=== PATIENT | female | born 1990 | race Caucasian/White ===

== ENCOUNTER 2021-03-11 09:17 | Emergency (ER) | payer OTHER | END 2021-03-11 10:11 | disposition home or self-care (01) | LOC: CSHERS 09:17 | DX: Z36.89 Encounter for other specified antenatal screening (principal); O99.282 Endocrine, nutritional and metabolic diseases complicating pregnancy, second trimester; E11.9 Type 2 diabetes mellitus without complications; O99.352 Diseases of the nervous system complicating pregnancy, second trimester; G80.9 Cerebral palsy, unspecified; O99.332 Smoking (tobacco) complicating pregnancy, second trimester; F17.210 Nicotine dependence, cigarettes, uncomplicated; Z3A.18 18 weeks gestation of pregnancy | CPT/HCPCS: 99281 ==

== ENCOUNTER 2021-06-09 15:07 | Day surgery (SDC) | payer OTHER, SELFPAY ==
[2021-06-09] MEDS ORDERED: Ondansetron PF 4 MG/2 ML Vial ONE (15:38)
[2021-06-09 15:42] LABS: #Monocytes 0.3 10x3/uL (0.0-1.1); #Neutrophils 3.1 10x3/uL (1.5-8.4); %Basophils 0.3 % (0.0-2.0); %Eosinophils 0.3 % (0.0-6.0); %Lymphocytes 12.3 % (18.0-47.0); %Monocytes 7.9 % (0.0-10.0); %Neutrophils 78.4 % (40.0-75.0); Hemoglobin 12.4 g/dL (12.0-15.5); Mean Corpuscular HGB CONC 32.5 g/dL (32.0-36.0); Mean Corpuscular Hemoglobin 28.2 pg (27.0-33.0); Mean Platelet Volume 11.2 fl (7.4-10.4); Platelet Count 145 10x3/uL (150-450); RBC Distribution Width 13.9 % (11.5-14.5); Red Blood Cell (RBC) Count 4.39 10x6/uL (3.90-5.03); White Blood Cell (WBC) Count 3.9 10x3/uL (3.5-10.5)
[2021-06-09 15:55] LABS: ALT (SGPT) 25 U/L (8-55); AST (SGOT) 28 U/L (5-34); Albumin 3.2 g/dL (3.5-5.0); Alkaline Phosphatase 101 U/L (40-110); Anion Gap 14 mmol/L (10-20); BUN (Urea Nitrogen) 7 mg/dL (7.0-18.7); Bilirubin, Total 0.3 mg/dL (0.2-1.2); Calc. Creatinine Clearance 0 mL/min (70-130); Calcium 8.6 mg/dL (7.8-10.44); Carbon Dioxide 19 mmol/L (22-29); Chloride 105 mmol/L (98-107); Globulin 3.4 g/dL (2.4-3.5); Glucose 148 mg/dL (70-105); Lipase 34 U/L (8-78); Protein, Total 6.6 g/dL (6.0-8.3); Sodium 134 mmol/L (136-145)
[2021-06-09 19:02] VITALS: BMI 37.0
[2021-06-09] MEDS ORDERED: hydrALAZINE 20 MG/ML VIAL SLOW IVP PRN (19:41)
== END 2021-06-09 20:06 | disposition home or self-care (01) ==
LOC: CSHERS 15:07 → CSHLD/OP 18:37
PROVIDERS: ATTEND Obstetrics & Gynecology
DX: O21.2 Late vomiting of pregnancy (principal); O99.891 Other specified diseases and conditions complicating pregnancy; R10.9 Unspecified abdominal pain; R19.7 Diarrhea, unspecified; O24.113 Pre-existing type 2 diabetes mellitus, in pregnancy, third trimester; E11.65 Type 2 diabetes mellitus with hyperglycemia; O99.333 Smoking (tobacco) complicating pregnancy, third trimester; F17.210 Nicotine dependence, cigarettes, uncomplicated; Z3A.31 31 weeks gestation of pregnancy
CPT/HCPCS: 80053; 83690; 85025; 86900; 86901; J2405

== ENCOUNTER 2021-06-20 15:10 | Inpatient (IN) | payer OTHER ==
[2021-06-20] MEDS ORDERED: hydrALAZINE 20 MG/ML VIAL SLOW IVP PRN ×3 (15:48→18:23)
[2021-06-20] MEDS ORDERED: Ondansetron PF 4 MG/2 ML Vial IVP PRN ×2 (15:48→16:22)
[2021-06-20] MEDS ORDERED: Famotidine/PF 20 mg/2ml Vial SLOW IVP PRN (16:22)
[2021-06-20] MEDS ORDERED: Bicitra 30 ML UDCUP PO PRN (16:22)
[2021-06-20] MEDS ORDERED: Calcium Gluc 4.6 MEQ/10 ML (100 MG/ML) SLOW IVP PRN (16:25)
[2021-06-20] MEDS ORDERED: Magnesium Sulfate 20 GM/WATER 500 ML BAG IVPB SCH ×2 (16:30→16:45)
[2021-06-20 16:38] LABS: Hemoglobin 10.9 g/dL (12.0-15.5); Mean Corpuscular Hemoglobin 27.4 pg (27.0-33.0); Mean Corpuscular Volume 85.7 fl (81.6-98.3); Mean Platelet Volume 11.2 fl (7.4-10.4); Platelet Count 151 10x3/uL (150-450); RBC Distribution Width 13.5 % (11.5-14.5); Red Blood Cell (RBC) Count 3.98 10x6/uL (3.90-5.03); White Blood Cell (WBC) Count 6.5 10x3/uL (3.5-10.5)
[2021-06-20 16:43] LABS: ALT (SGPT) 14 U/L (8-55); AST (SGOT) 11 U/L (5-34); Alkaline Phosphatase 95 U/L (40-110); Anion Gap 13 mmol/L (10-20); BUN (Urea Nitrogen) 7 mg/dL (7.0-18.7); Bilirubin, Total 0.2 mg/dL (0.2-1.2); Calc. Creatinine Clearance 0 mL/min (70-130); Carbon Dioxide 21 mmol/L (22-29); Chloride 106 mmol/L (98-107); Globulin 3.1 g/dL (2.4-3.5); Glucose 243 mg/dL (70-105); Potassium 3.8 mmol/L (3.5-5.1); Protein, Total 6.1 g/dL (6.0-8.3); Sodium 136 mmol/L (136-145)
[2021-06-20] MEDS: Magnesium Sulfate 20 gm/500 ml 20 GM/500 ML BAG IVPB SCH (17:10)
[2021-06-20] MEDS: hydrALAZINE 20 MG/ML VIAL SLOW IVP SCH ×2 (17:24→19:15)
[2021-06-20] MEDS ORDERED: Dextrose 50% Abboject 50 ML SYRINGE SLOW IVP PRN (17:27)
[2021-06-20] MEDS ORDERED: HumaLOG 300 UNITS/3 ML VIAL SC PRN (17:27)
[2021-06-20] MEDS ORDERED: Dextrose 5% in Water 1,000 ML IV PRN (17:27)
[2021-06-20] MEDS ORDERED: hydrALAZINE 20 MG/ML VIAL SLOW IVP SCH (17:30)
[2021-06-20 18:00] VITALS: BMI 38.7
[2021-06-20] MEDS: Betamet Acet/Betamet Na Ph 30 MG/5 ML VIAL IM SCH (18:25)
[2021-06-20] MEDS ORDERED: NIFEdipine XL 30 MG TAB PO SCH (19:00)
[2021-06-20] MEDS ORDERED: Labetalol HCl 100 MG/20 ML VIAL ONE (19:48)
[2021-06-20] MEDS ORDERED: Acetaminophen 500 MG TAB PO PRN (21:09)
[2021-06-20 21:52] LABS: Creatinine, Urine 27.39 mg/dL (47-110); Protein, Urine Random Quant Less than 10 mg/dL (1-14)
[2021-06-20 22:21] LABS: SARS-CoV-2 NAA Rapid Test DETECTED (NotDetected)
[2021-06-20] MEDS: HumaLOG 300 UNITS/3 ML VIAL SC PRN (23:51)
[2021-06-21] MEDS: Magnesium Sulfate 20 gm/500 ml 20 GM/500 ML BAG IVPB SCH (01:40)
[2021-06-21] MEDS: HumaLOG 300 UNITS/3 ML VIAL SC PRN ×4 (01:49→23:03)
[2021-06-21 14:17] LABS: SARS-CoV-2 PCR by NAA Not Detected (NotDetected)
[2021-06-21] MEDS: Betamet Acet/Betamet Na Ph 30 MG/5 ML VIAL IM SCH (18:18)
[2021-06-21] MEDS: NIFEdipine XL 30 MG TAB PO SCH (23:01)
[2021-06-22] MEDS ORDERED: Lantus 1000 UNITS/10 ML VIAL SC SCH ×2 (09:00→21:00)
[2021-06-22] MEDS: HumaLOG 300 UNITS/3 ML VIAL SC PRN ×2 (10:40→14:19)
[2021-06-22] MEDS: NIFEdipine XL 30 MG TAB PO SCH (21:02)
[2021-06-23 05:04] LABS: Mean Corpuscular HGB CONC 31.9 g/dL (32.0-36.0); Mean Corpuscular Hemoglobin 27.4 pg (27.0-33.0); Mean Corpuscular Volume 85.8 fl (81.6-98.3); Mean Platelet Volume 10.7 fl (7.4-10.4); Platelet Count 172 10x3/uL (150-450); RBC Distribution Width 14.1 % (11.5-14.5); Red Blood Cell (RBC) Count 4.02 10x6/uL (3.90-5.03); White Blood Cell (WBC) Count 6.7 10x3/uL (3.5-10.5)
[2021-06-23 05:10] LABS: ALT (SGPT) 14 U/L (8-55); AST (SGOT) 11 U/L (5-34); Albumin 3.1 g/dL (3.5-5.0); Alkaline Phosphatase 91 U/L (40-110); Anion Gap 13 mmol/L (10-20); BUN (Urea Nitrogen) 9 mg/dL (7.0-18.7); Bilirubin, Total 0.2 mg/dL (0.2-1.2); Calc. Creatinine Clearance 244 mL/min (70-130); Calcium 8.5 mg/dL (7.8-10.44); Carbon Dioxide 21 mmol/L (22-29); Chloride 107 mmol/L (98-107); Globulin 3.1 g/dL (2.4-3.5); Glucose 133 mg/dL (70-105); Potassium 3.8 mmol/L (3.5-5.1); Protein, Total 6.2 g/dL (6.0-8.3); Sodium 137 mmol/L (136-145)
[2021-06-23] MEDS: Lantus 1000 UNITS/10 ML VIAL SC SCH (10:32)
[2021-06-23] MEDS: NIFEdipine XL 30 MG TAB PO SCH (20:54)
[2021-06-23] MEDS ORDERED: Lantus 1000 UNITS/10 ML VIAL SC SCH (21:00)
[2021-06-24] MEDS: Lantus 1000 UNITS/10 ML VIAL SC SCH (08:44)
[2021-06-24 11:26] VITALS: BP 140/98; TEMP 98.2
== END 2021-06-24 11:37 | disposition home or self-care (01) | DRG 833 ==
LOC: CSHLD/OP 15:10 → CSHLD 15:11 → OBSVTOIN 15:12 → CSHPED 06-21 17:06 → CSHANTE 06-21 21:05
PROVIDERS: ADMIT Obstetrics & Gynecology; ATTEND Obstetrics & Gynecology
DX: O13.3 Gestational [pregnancy-induced] hypertension without significant proteinuria, third trimester (principal); O99.283 Endocrine, nutritional and metabolic diseases complicating pregnancy, third trimester; E28.2 Polycystic ovarian syndrome; L68.0 Hirsutism; O24.419 Gestational diabetes mellitus in pregnancy, unspecified control; Z86.16 Personal history of COVID-19; Z3A.32 32 weeks gestation of pregnancy
CPT/HCPCS: 36415; 36416; 80053; 82570; 84156; 85027; 86850; 86900; 86901; J0360; J0702; J1815; J3475; U0002; U0003; U0005

== ENCOUNTER 2021-06-24 18:28 | Inpatient (IN) | payer OTHER ==
[2021-06-24 19:23] VITALS: BMI 38.7
[2021-06-24] MEDS ORDERED: Labetalol HCl 100 MG/20 ML VIAL ONE (19:38)
[2021-06-24] MEDS ORDERED: hydrALAZINE 20 MG/ML VIAL SLOW IVP PRN (19:48)
[2021-06-24] MEDS ORDERED: Promethazine HCl 25 MG/ML VIAL IM PRN (19:48)
[2021-06-24] MEDS ORDERED: Zolpidem Tartrate 5 MG TAB PO PRN (19:48)
[2021-06-24] MEDS ORDERED: Labetalol HCl 100 MG/20 ML VIAL SLOW IVP SCH (20:00)
[2021-06-24] MEDS ORDERED: Acetaminophen 500 MG TAB PO PRN (20:37)
[2021-06-24] MEDS ORDERED: Labetalol 100 MG TAB PO SCH (21:00)
[2021-06-24] MEDS ORDERED: NIFEdipine XL 30 MG TAB PO SCH (21:00)
[2021-06-24] MEDS: Lantus 1000 UNITS/10 ML VIAL SC SCH (21:01)
[2021-06-24] MEDS: valACYclovir 500 MG TAB PO SCH (21:34)
[2021-06-25 04:55] LABS: #Eosinphils 0.1 10x3/uL (0.0-0.5); #Monocytes 0.6 10x3/uL (0.0-1.1); %Basophils 0.3 % (0.0-2.0); %Eosinophils 0.7 % (0.0-6.0); %Lymphocytes 23.7 % (18.0-47.0); %Neutrophils 66.9 % (40.0-75.0); Mean Corpuscular HGB CONC 31.3 g/dL (32.0-36.0); Mean Corpuscular Hemoglobin 27.3 pg (27.0-33.0); Mean Corpuscular Volume 87.1 fl (81.6-98.3); Platelet Count 176 10x3/uL (150-450); RBC Distribution Width 13.7 % (11.5-14.5); Red Blood Cell (RBC) Count 4.03 10x6/uL (3.90-5.03); White Blood Cell (WBC) Count 7.5 10x3/uL (3.5-10.5)
[2021-06-25 05:23] LABS: ALT (SGPT) 17 U/L (8-55); AST (SGOT) 19 U/L (5-34); Alkaline Phosphatase 101 U/L (40-110); Anion Gap 12 mmol/L (10-20); BUN (Urea Nitrogen) 11 mg/dL (7.0-18.7); Bilirubin, Total 0.2 mg/dL (0.2-1.2); Calc. Creatinine Clearance 204 mL/min (70-130); Calcium 8.8 mg/dL (7.8-10.44); Carbon Dioxide 20 mmol/L (22-29); Chloride 108 mmol/L (98-107); Glucose 126 mg/dL (70-105); Potassium 4.2 mmol/L (3.5-5.1); Sodium 136 mmol/L (136-145)
[2021-06-25] MEDS: Lantus 1000 UNITS/10 ML VIAL SC SCH ×2 (08:25→20:54)
[2021-06-25] MEDS: valACYclovir 500 MG TAB PO SCH ×2 (08:29→20:54)
[2021-06-25] MEDS ORDERED: NIFEdipine XL 60 MG TAB PO SCH (09:00)
[2021-06-25] MEDS ORDERED: NIFEdipine XL 30 MG TAB PO SCH (09:00)
[2021-06-25] MEDS ORDERED: HumaLOG 300 UNITS/3 ML VIAL SC PRN (11:12)
[2021-06-25] MEDS ORDERED: Dextrose 50% Abboject 50 ML SYRINGE SLOW IVP PRN (11:12)
[2021-06-25] MEDS ORDERED: Dextrose 5% in Water 1,000 ML IV PRN (11:12)
[2021-06-25] MEDS: HumaLOG 300 UNITS/3 ML VIAL SC PRN (11:35)
[2021-06-25] MEDS: NIFEdipine XL 30 MG TAB PO SCH (19:37)
[2021-06-26] MEDS: NIFEdipine XL 30 MG TAB PO SCH ×2 (10:42→21:11)
[2021-06-26] MEDS: Lantus 1000 UNITS/10 ML VIAL SC SCH ×2 (10:42→21:13)
[2021-06-26] MEDS: valACYclovir 500 MG TAB PO SCH ×2 (10:43→21:12)
[2021-06-27 06:24] LABS: Fetal Membranes Rupture RUPTURE DETECTED (No Rupture)
[2021-06-27] MEDS ORDERED: Ibuprofen 800 MG TAB PO PRN (07:59)
[2021-06-27] MEDS ORDERED: Carboprost 250 MCG/ML AMP IM PRN (07:59)
[2021-06-27] MEDS ORDERED: HYDROcodone/Acetaminophen 5/325 mg Tablet PO PRN (07:59)
[2021-06-27] MEDS ORDERED: Diphenoxylate HCl/Atropine Tablet PO PRN ×2 (07:59)
[2021-06-27] MEDS ORDERED: Lidocaine 1% (PF) 30 ML VIAL SC PRN (07:59)
[2021-06-27] MEDS ORDERED: Misoprostol 200 MCG TAB PR PRN (07:59)
[2021-06-27] MEDS ORDERED: NS w/ Oxytocin 30 units 500 ML IV SCH (08:00)
[2021-06-27] MEDS ORDERED: NS w/ Oxytocin 30 units 500 ML IVPB SCH (08:00)
[2021-06-27] MEDS ORDERED: Penicillin G Potassium 5 MILL.UNITS in Sodium Chloride 0.9% 100 ML IVPB SCH (08:30)
[2021-06-27 08:44] LABS: ALT (SGPT) 20 U/L (8-55); AST (SGOT) 18 U/L (5-34); Albumin 3.4 g/dL (3.5-5.0); Alkaline Phosphatase 112 U/L (40-110); Anion Gap 12 mmol/L (10-20); BUN (Urea Nitrogen) 9 mg/dL (7.0-18.7); Bilirubin, Total 0.2 mg/dL (0.2-1.2); Calc. Creatinine Clearance 224 mL/min (70-130); Carbon Dioxide 19 mmol/L (22-29); Chloride 106 mmol/L (98-107); Globulin 3.5 g/dL (2.4-3.5); Glucose 127 mg/dL (70-105); Potassium 3.9 mmol/L (3.5-5.1); Protein, Total 6.9 g/dL (6.0-8.3); Sodium 133 mmol/L (136-145)
[2021-06-27 08:50] LABS: Hemoglobin 12.2 g/dL (12.0-15.5); Mean Corpuscular HGB CONC 31.9 g/dL (32.0-36.0); Mean Corpuscular Hemoglobin 27.4 pg (27.0-33.0); Mean Corpuscular Volume 85.7 fl (81.6-98.3); Mean Platelet Volume 11.2 fl (7.4-10.4); Platelet Count 158 10x3/uL (150-450); RBC Distribution Width 13.8 % (11.5-14.5); Red Blood Cell (RBC) Count 4.46 10x6/uL (3.90-5.03); White Blood Cell (WBC) Count 7.1 10x3/uL (3.5-10.5)
[2021-06-27] MEDS: NIFEdipine XL 30 MG TAB PO SCH ×2 (09:17→21:05)
[2021-06-27] MEDS: Lactated Ringer's 1,000 ML IV SCH ×2 (09:24→14:10)
[2021-06-27] MEDS: valACYclovir 500 MG TAB PO SCH ×2 (09:58→21:05)
[2021-06-27] MEDS ORDERED: hydrALAZINE 20 MG/ML VIAL SLOW IVP PRN ×2 (10:38→22:57)
[2021-06-27] MEDS ORDERED: Ondansetron PF 4 MG/2 ML Vial IVP PRN (10:38)
[2021-06-27] MEDS ORDERED: Promethazine HCl 25 MG/ML VIAL IM PRN (10:38)
[2021-06-27 10:44] LABS: HIV (1/2) Antibody/Antigen Non-Reactive (NonReactive); HIV 1/2 INDEX 0.09 S/CO (<1.00)
[2021-06-27 13:03] LABS: Hep B Surf Ag Non-Reactive S/CO (NonReactive)
[2021-06-27 13:04] LABS: Syphilis Antibody Nonreactive (Nonreactive); Syphilis Antibody Index 0.02 S/CO (<1.00 Non-Reactive)
[2021-06-27 13:06] LABS: HBSAg Index 0.18 S/CO (0-0.99)
[2021-06-27] MEDS ORDERED: Fentanyl 2 mcg/Bup 0.1% Cadd 100 ML ONE ×2 (13:10→20:43)
[2021-06-27] MEDS: Penicillin G 2.5 MILL.units 2.5 MILL.UNITS in Premix Bag 1 BAG IVPB SCH ×2 (13:53→18:22)
[2021-06-27] MEDS ORDERED: Preparation H Ointment 28 GM TUBE PR PRN (22:57)
[2021-06-27] MEDS ORDERED: Benzocaine-Menthol 82.5 ML CAN TOP PRN (22:57)
[2021-06-27] MEDS ORDERED: traMADol HCl 50 MG TAB PO PRN (22:57)
[2021-06-27] MEDS ORDERED: Bisacodyl 10 MG SUPP PR PRN (22:57)
[2021-06-27] MEDS ORDERED: Lanolin Ointment 7 GM TUBE TOP PRN (22:57)
[2021-06-27] MEDS ORDERED: Milk Of Magnesia 30 ML UDCUP PO PRN (22:57)
[2021-06-28] MEDS: Ibuprofen 800 MG TAB PO SCH ×3 (03:42→17:22)
[2021-06-28] MEDS: Lactated Ringer's 1,000 ML IV SCH ×3 (05:24→11:47)
[2021-06-28] MEDS: Penicillin G 2.5 MILL.units 2.5 MILL.UNITS in Premix Bag 1 BAG IVPB SCH (07:57)
[2021-06-28] MEDS ORDERED: Boostrix 0.5 ML (Tdap) VIAL IM ONE (09:00)
[2021-06-28] MEDS: Ferrous Sulfate 325 MG TAB PO SCH ×2 (09:02→11:47)
[2021-06-28] MEDS: NIFEdipine XL 30 MG TAB PO SCH ×2 (09:04→21:04)
[2021-06-28] MEDS: Docusate Calcium (SURFAK) 240 MG CAP PO SCH ×2 (09:04→21:05)
[2021-06-28] MEDS: valACYclovir 500 MG TAB PO SCH ×2 (09:10→21:05)
[2021-06-28] MEDS: HumaLOG 300 UNITS/3 ML VIAL SC PRN ×2 (12:11→17:24)
[2021-06-28 18:22] LABS: pH (Cord, venous) 7.257 (7.250-7.350)
[2021-06-29] MEDS: Ibuprofen 800 MG TAB PO SCH ×3 (00:06→17:06)
[2021-06-29] MEDS: Lactated Ringer's 1,000 ML IV SCH ×3 (04:56→17:08)
[2021-06-29] MEDS: Ferrous Sulfate 325 MG TAB PO SCH ×2 (07:55→17:07)
[2021-06-29] MEDS: Docusate Calcium (SURFAK) 240 MG CAP PO SCH (07:58)
[2021-06-29] MEDS: NIFEdipine XL 30 MG TAB PO SCH (07:59)
[2021-06-29] MEDS: valACYclovir 500 MG TAB PO SCH (08:06)
[2021-06-29] MEDS: Hydrocortisone/Pramoxine (Proctofoam HC) 10 GM BOX PR SCH ×2 (10:25→17:06)
[2021-06-29] MEDS: HumaLOG 300 UNITS/3 ML VIAL SC PRN (10:55)
[2021-06-29 11:39] VITALS: BP 136/81; TEMP 98.6
== END 2021-06-29 18:55 | disposition home or self-care (01) | DRG 807 ==
LOC: CSHLD/OP 18:28 → CSHLD 23:11 → OBSVTOIN 23:11 → CSHANTE 06-26 15:32 → CSHLD 06-27 08:49 → CSHPP 06-28 02:44
PROVIDERS: ADMIT Obstetrics & Gynecology; ATTEND Obstetrics & Gynecology
PROC: 3E033VJ Introduction of Other Hormone into Peripheral Vein, Percutaneous Approach (ICD-10-PCS; 2021-06-24)
PROC: 10E0XZZ Delivery of Products of Conception, External Approach (ICD-10-PCS; principal; 2021-06-28)
PROC: 0W8NXZZ Division of Female Perineum, External Approach (ICD-10-PCS; 2021-06-28)
DX: O13.4 Gestational [pregnancy-induced] hypertension without significant proteinuria, complicating childbirth (principal); Z37.0 Single live birth; Z3A.33 33 weeks gestation of pregnancy; O24.424 Gestational diabetes mellitus in childbirth, insulin controlled; O99.284 Endocrine, nutritional and metabolic diseases complicating childbirth; E28.2 Polycystic ovarian syndrome; O36.63X0 Maternal care for excessive fetal growth, third trimester, not applicable or unspecified; O66.0 Obstructed labor due to shoulder dystocia
CPT/HCPCS: 36415; 36416; 51702; 80053; 82805; 84112; 85025; 85027; 86780; 86850; 86900; 86901; 87340; 87389; 99285; J1815; J2540; J2590; J3490; J7120

== ENCOUNTER 2023-06-23 10:14 | Emergency (ER) | payer OTHER, SELFPAY ==
[2023-06-23] MEDS ORDERED: Fluconazole 100 MG TAB PO SCH (11:45)
[2023-06-23 12:00] LABS: Bilirubin Neg (Negative); Blood, Urine Negative (Negative); Glucose, Urine (Dipstick) >=1000 mg/dL (Negative); Ketone, Urine 50 mg/dL (Negative); Leukocyte Negative (Negative); Nitrite Negative (Negative); Protein, Urine (Dipstick) 100 mg/dl (Neg-Trace); Urobilinogen Normal mg/dL (Less than 2)
[2023-06-23 12:06] LABS: Clarity Clear (Clear)
[2023-06-23 12:08] LABS: Bacteria/HPF 1+ HPF (None Seen); CAUTI Indications for Culture Pelvic or flank pain; RBC/HPF 0-3 HPF (0-3)
[2023-06-23 12:09] LABS: Urine Culture Reflex No No
[2023-06-23 13:05] LABS: Pregnancy Test - Urine (BHCG) Negative (Negative); Pregu Control Background? CLEAR/WHITE (CLR/WHITE); Pregu Control Bar Appear? YES (CONTROL BAR)
== END 2023-06-23 13:26 | disposition home or self-care (01) ==
LOC: CSHERS 10:14
DX: B37.31 Acute candidiasis of vulva and vagina (principal); L73.9 Follicular disorder, unspecified; E11.9 Type 2 diabetes mellitus without complications; F17.210 Nicotine dependence, cigarettes, uncomplicated
CPT/HCPCS: 81001; 81025; 87480; 87510; 87660; 99283